=== PATIENT | female | born 1980 | race Two or more races ===

== ENCOUNTER 2019-08-23 21:45 | Emergency (ER) | payer MEDICAID ==
[~2019-08-23] VITALS: Ht 149.9 cm; Wt 110.0 kg
[2019-08-23 22:03] VITALS: BP 174/91
== END 2019-08-23 23:25 | disposition home or self-care (01) ==
LOC: ER 21:45
DX: H92.01 Otalgia, right ear (principal); F17.200 Nicotine dependence, unspecified, uncomplicated; Z98.890 Other specified postprocedural states
CPT/HCPCS: 99283